=== PATIENT | male | born 1990 | race Caucasian/White ===

== ENCOUNTER 2023-11-02 11:00 | Outpatient (REF) | payer OTHER, SELFPAY ==
[2023-11-02 14:19] LABS: Estimated Average Glucose 263 mg/dL; Hemoglobin A1c % 10.8 % (<6.0)
[2023-11-02 14:51] LABS: Creatinine Urine 109.24 mg/dL; Microalbum/Creatinine Ratio Ur 166.6 ug/mg cr (<30)
[2023-11-02 15:24] LABS: Alanine Aminotransferase 23 U/L (0-40); Albumin Level 3.6 g/dL (3.5-5.0); Alkaline Phosphatase 71 U/L (39-117); Anion Gap 13 (12-20); Aspartate Amino Transferase 23 U/L (5-37); Bilirubin Total 1.1 mg/dL (0.0-1.0); Blood Urea Nitrogen 11 mg/dL (9-16); Carbon Dioxide 31 mmol/L (22-29); Chloride 100 mmol/L (96-108); Cholesterol 133 mg/dL (<200); Estimated Glomerular Filt Rate > 60; Glucose Random 379 mg/dL (60-115); HDL Cholesterol 31 mg/dL (>40); LDL Cholesterol Calculated 67 mg/dL (<100); Sodium 140 mmol/L (135-145); Total Protein 7.1 g/dL (6.5-8.0); Triglycerides 179 mg/dL (<150)
== END 2023-11-02 11:01 | disposition home or self-care (01) ==
LOC: HO.10HDL 11:00
PROVIDERS: Visit Provider Internal Medicine
DX: E11.65 Type 2 diabetes mellitus with hyperglycemia (principal); E66.01 Morbid (severe) obesity due to excess calories; E78.2 Mixed hyperlipidemia; I10 Essential (primary) hypertension
CPT/HCPCS: 36415; 80053; 80061; 82043; 82570; 83036

== ENCOUNTER 2023-11-16 14:05 | Outpatient (AMB) | payer OTHER, SELFPAY ==
--- NOTE | 2023-11-16 14:27 | MHC.OFFVIS ---
Intake Vital Signs 11/16/23 14:30 Height 5 ft Weight 268 lb 15.423 oz BMI 52.5 BP 130/76 Blood Pressure Location Lt brachial Position Sitting Pulse 54 Intake Visit Reasons: NPV/Adlakha/Heart disease/PFO Intake Note: NPV w/ EKG Entry Level Administrative Assistant Required: No Accompanied by: Spouse Allergies No Known Allergies Allergy (Verified 11/16/23 14:31) Medication List - Last Reconciled 11/16/23 by Pelon Choudhury MD atorvastatin 40 mg PO DAILY glipizide ER 10 mg PO BID losartan 50 mg PO DAILY metoprolol tartrate 100 mg PO BID HPI HPI Comments History of Present Illness Details Placido is here for consultation regarding cardiac issues. Based on prior notes from [place], it seems that he has a small VSD and possible bicuspid aortic valve. According to patient, he underwent cardiac surgery at age of 4 days and then [address] [facility]. He says that because of insurance issues, cardiology followups have not been regular. Nothing in the last few years. He generally feels fine for the most part. He does have traditional risk factors for coronary disease including obesity, hypertension, diabetes and dyslipidemia. Otherwise, he gets some random chest tightness episodes but no specific patterns. No clear exertional angina. Some shortness of breath on going up hill but not on level ground. He would like to establish new cardiology care. [facility] Medical History (Updated 11/16/23 @ 14:37 by Pelon Choudhury MD) Bicuspid aortic valve VSD (ventricular septal defect) Surgical History (Updated 11/16/23 @ 14:43 by Pelon Choudhury MD) H/O heart surgery Family History (Updated 11/16/23 @ 14:33 by Fadia Kruger) Father No problems noted. Mother No problems noted. Social History (Updated 11/16/23 @ 14:43 by Pelon Choudhury MD) Alcohol intake: current Alcohol intake frequency: holidays/special occasions only Patient Tobacco Use Status: Former Tobacco user Substance Use Type: Marijuana Review of Systems Const Denies chills, Denies daytime sleepiness, Denies fatigue, Denies fever(s), Denies frequent falls, Denies night sweats, Denies snoring, Denies weakness, Denies weight gain and Denies weight loss Eyes Denies loss of vision ENT Denies dizziness and Denies hearing loss Card Denies chest pain with activity, Denies syncope, Denies rapid heart rate, Denies edema, Denies claudication, Denies leg edema, Denies lightheadedness, Denies palpitations, Denies dyspnea, Denies dyspnea on exertion and Denies orthopnea Resp Denies cough, Denies excessive phlegm production, Denies dyspnea, Denies dyspnea on exertion, Denies snoring and Denies wheezing GI Denies abdominal pain, Denies hematochezia, Denies change in bowel habits, Denies change in stool character, Denies heartburn, Denies nausea and Denies vomiting Denies hematuria, Denies dysuria and Denies urinary frequency Musc Denies arthralgias, Denies muscle weakness, Denies numbness and Denies tingling Skin/Breast Denies nail changes and Denies rash Neuro Denies Abnormal speech present, Denies dizziness, Denies syncope, Denies frequent falls, Denies loss of vision, Denies memory loss, Denies numbness, Denies tingling and Denies weakness Psych Denies depression and Denies memory loss Endo Denies fatigue and Denies palpitations Aller/Immun Denies wheezing Physical Exam Vital Signs: Last Vital Signs Pulse 54 11/16/23 14:30 BP 130/76 11/16/23 14:30 BMI result Body Mass Index 52.5 Const General: comfortable and no acute distress Orientation/consciousness: patient oriented x3 HEENT Other: Unremarkable Head: Yes normal to inspection Neck Neck: Yes normal visual inspection Chest Chest palpation & inspection: normal inspection of the chest Resp Auscultation: clear to auscultation bilaterally Cardio Palpation: normal PMI Heart sounds: S1 normal heart sound present, S2 normal heart sound present, no gallops, no murmurs and no rubs GI Palpation (GI): Soft to palpation Back/Spine/Pelvis Other: unremarkable Skin General skin exam: no rashes or lesions noted Neuro General: patient oriented x3 Speech: No Abnormal speech present Extrem General: Yes normal to inspection Psych Mental Status: mental status grossly normal Office Procedures EKG Details: EKG with sinus bradycardia at 54/Min; no significant ST-T changes and otherwise unremarkable. [place]. [id number]-[id number], Complete Assessment & Plan Assessment & Plan (1) VSD (ventricular septal defect): Code(s): Q21.0 - Ventricular septal defect (2) Bicuspid aortic valve: Code(s): Q23.1 - Congenital insufficiency of aortic valve Plan Echo report from [facility] and [place]-LVEF 65-70%. Perimembranous VSD noted. Possible bicuspid aortic valve with minimal aortic sclerosis. Otherwise, [id number] pulmonary valve regurgitation, mild mitral regurgitation. Right ventricular size/function within normal range. Overall, unclear cardiac surgery at age of 4 days and 4 years and last echocardiographic findings as above. I believe he needs another echocardiogram to reassess. We will also contact [place] for any prior records if still available. Will follow-up in a few weeks' time. Discussed with significant other. Orders: Orders CA echo transthoracic complete Today Q21.0 - Ventricular septal defect, Q23.1 - Congenital insufficiency of aortic valve Coding Level of Care Code New Pt Level 4 (65040) Diagnoses VSD (ventricular septal defect) Q21.0 Bicuspid aortic valve Q23.1 CPT Codes EKG - CPT: 88420-[id number], Complete ([id number])
[2023-11-16 14:30] VITALS: BP 130/76; PULSE 54; BMI 52.5
== END 2023-11-16 14:52 | disposition home or self-care (01) ==
PROVIDERS: PCP Internal Medicine; Visit Provider Internal Medicine
DX: Q21.0 Ventricular septal defect (principal); Q23.1 Congenital insufficiency of aortic valve
CPT/HCPCS: 93010; 99204

== ENCOUNTER → 2023-11-16 14:05 | Outpatient (BNVA) | payer OTHER, SELFPAY | PROVIDERS: PCP Internal Medicine; Visit Provider Internal Medicine | DX: Q21.0 Ventricular septal defect (principal); Q23.1 Congenital insufficiency of aortic valve | CPT/HCPCS: 93005; 99202 ==

== ENCOUNTER → 2023-12-06 15:59 | Outpatient (REF) | payer OTHER, SELFPAY ==
--- NOTE | 2023-12-06 16:01 | CA_ITS ---
Transthoracic Echocardiogram Patient (Last, First, Middle): Placido Nur, Gender: Male Date of : 1990 Age: 33 Procedure Date: 12/06/2023 Procedure Type: Transthoracic Echocardiogram Location: OP Height: 152.4 cm Weight: 124.74 kg BSA: 2.14 m2 Heart Rate: bpm BP: 110 / 78 mmHg Corporate Account Executive: JACINTO Referring MD: Pelon Choudhury MD Symptoms: Q21.0 - Ventricular septal defect Study Quality: Technically Difficult, contrast ECG Rhythm: Sinus Conclusions: - The left ventricular systolic function is low normal. The calculated ejection fraction is 52% by biplane method. - No obvious valvular pathology seen on this study. Findings Procedure Information Contrast agent, definity, is being given per protocol without apparent complications. Left Ventricle Normal left ventricular cavity size. There is mildly increased left ventricular wall thickness. The left ventricular systolic function is low normal. The calculated ejection fraction is 52% by biplane method. There is paradoxical septal motion consistent with post-operative status. Diastolic function is normal for age. Right Ventricle Normal right ventricular cavity size and systolic function. Atria Both atria are normal in size. Aortic Valve The aortic valve structure and function is likely normal. There is a normal trileaflet aortic valve. There is no aortic valve regurgitation. No definitive suggestion of bicuspid aortic valve. Mitral Valve The mitral valve appears normal. There is no mitral valve regurgitation. There is no mitral valve stenosis. Pulmonic Valve The pulmonic valve is likely normal. Tricuspid Valve There is no tricuspid valve regurgitation. Tricuspid regurgitation envelope is inadequate for calculation of right ventricular systolic pressure. Great Vessels The asc aorta is normal in size. Venous The inferior vena cava is normal in size and collapses greater than 50% with inspiration. Pericardium/Pleural There is a trivial pericardial effusion. Prior Study Comparison No prior study available for comparison. Recommendations, Care & Conclusions No obvious valvular pathology seen on this study. Measurements 2D Linear Measurements IVSd: 1.20 0.6-0.9/0.6-1.0 cm LVIDd: 4.52 3.9-5.3/4.2-5.9 cm LVIDd Index: 2.11 2.4-3.2/2.2-3.1 cm/m2 LVIDs: 2.75 2.0-3.6 cm LVPWd: 1.12 0.7-1.1 cm LA Diam: 3.50 2.7-3.8/3.0-4.0 cm LAIDs Index: 1.64 1.5-2.3 cm/m2 LV Mass: 236.77 67-162/88-224 g LV Mass Index: 110.64 43-95/49-115 g/m2 LVOT Diam: 2.20 3.0+(-)1.3 cm 2D Systolic Function EF 4C: 53.00 >55% EF 2C: 50.10 >55% EF BiP: 51.50 >55% Mitral Valve MV Pk E: 1.19 MV PK A: 0.62 MV Decel Time: 143.00 E/A: 1.90 E'Lateral: 14.90 E'Medial: 10.20 E/E' Med: 11.70 E/E' Lat: 8.00 PHT: 42.00 MVA PHT: 5.24 Decel [place]: 8.26 Aortic Valve AoV Pk Mando: 1.23 AoV Mn Mando: 0.84 AoV VTI: 0.28 AoV Pk Grad: 6.00 Aov Mn Grad: 3.00 FADIA Cont.VTI: 2.89 LVOT LVOT Pk Mando: 0.98 LVOT Mn Mando: 0.68 LVOT VTI: 0.21 LVOT Pk Grad: 4.00 LVOT Mn Grad: 2.00 LVOT Diam: 2.20 LVOT Area: 3.80 Diastolic Function MV Pk E: 1.19 MV Pk A: 0.62 E/A: 1.90 E'Medial: 10.20 E/E' Med: 11.70 E' Laterial: 14.90 E/E' Lat: 8.00 Right Ventricle TAPSE (mm): 18.00 TVS' Mando: 11.70 Tricuspid Valve RA Press: 3.00 Great Vessels Aorta Sinus of Valsalva: 3.49 2.0-3.[address] [place]: 2.69 1.7-3.4 cm Ao Asc: 2.80 2.1-3.4 cm Updated in Other Vendor System with Status of Final Pelon Choudhury MD electronically signed on 12/08/2023 6:02:43 AM with status of Final
== END ==
LOC: HO.CARD 15:59
PROVIDERS: PCP Internal Medicine; Visit Provider Internal Medicine
DX: Q23.1 Congenital insufficiency of aortic valve (principal); Q21.0 Ventricular septal defect
CPT/HCPCS: 93306; Q9957

== ENCOUNTER → 2023-12-06 16:01 | Outpatient (BNV) | payer OTHER, SELFPAY | PROVIDERS: PCP Internal Medicine; Visit Provider Internal Medicine | DX: Q21.0 Ventricular septal defect (principal) | CPT/HCPCS: 93306 ==

== ENCOUNTER 2024-01-26 14:33 | Outpatient (AMB) | payer OTHER, SELFPAY ==
[2024-01-26 14:38] VITALS: BP 130/70; PULSE 78; BMI 54.9
--- NOTE | 2024-01-26 14:38 | A.OFFVIS_ITS ---
Intake Vital Signs 01/26/24 14:38 Height 5 ft Weight 281 lb 4.957 oz BMI 54.9 BP 130/70 Blood Pressure Location Rt brachial Position Sitting Pulse 78 Pulse Source Pulse Oximeter Intake Visit Reasons: 2 mth f/up echo/ [facility] records [employer] Supervisor Required: No Accompanied by: Spouse Allergies No Known Allergies Allergy (Verified 11/16/23 14:31) Medication List - Last Reconciled 01/26/24 by Pelon Choudhury MD atorvastatin 40 mg PO DAILY glipizide ER 10 mg PO BID losartan 50 mg PO DAILY metoprolol tartrate 100 mg PO BID HPI HPI Comments History of Present Illness Details Placido returns for follow-up. Recently seen in consultation. He is moved from [place]. Based on those notes, there is a question of small VSD/? Bicuspid aortic valve. He also has various traditional risk factors for coronary disease including morbid obesity, hypertension, diabetes, dyslipidemia. He is trying to establish care locally. Overall, he states he feels good. No specific complaints. Very interested in losing weight. [facility] Medical History (Updated 01/26/24 @ 15:31 by Pelon Choudhury MD) History of patent ductus arteriosus as a child Obesity Surgical History (Updated 01/26/24 @ 15:31 by Pelon Choudhury MD) H/O atrial septal defect repair H/O heart surgery Family History Father No problems noted. Mother No problems noted. Social History Alcohol intake: current Alcohol intake frequency: holidays/special occasions only Patient Tobacco Use Status: Former Tobacco user Substance Use Type: Marijuana Review of Systems Const Denies chills, Denies fatigue, Denies fever(s), Denies frequent falls, Denies weakness, Denies weight gain and Denies weight loss ENT Denies dizziness Card Denies chest pain, Denies leg edema, Denies lightheadedness, Denies palpitations, Denies dyspnea and Denies dyspnea on exertion Resp Denies cough, Denies dyspnea and Denies dyspnea on exertion GI Denies hematochezia Musc Denies abnormal gait, Denies muscle weakness, Denies numbness, Denies radiating pain into limb and Denies tingling Neuro Denies abnormal gait, Denies dizziness, Denies frequent falls, Denies numbness, Denies tingling and Denies weakness Endo Denies fatigue and Denies palpitations Physical Exam Vital Signs: Last Vital Signs Pulse 78 01/26/24 14:38 BP 130/70 01/26/24 14:38 BMI result Body Mass Index 54.9 Const General: comfortable and no acute distress Orientation/consciousness: patient oriented x3 HEENT Other: Unremarkable Head: Yes normal to inspection Neck Neck: Yes normal visual inspection Chest Chest palpation & inspection: normal inspection of the chest Resp Auscultation: clear to auscultation bilaterally Cardio Palpation: normal PMI Heart sounds: S1 normal heart sound present, S2 normal heart sound present, no gallops, no murmurs and no rubs GI Palpation (GI): Soft to palpation Back/Spine/Pelvis Other: unremarkable Skin General skin exam: no rashes or lesions noted Neuro General: patient oriented x3 Extrem General: Yes normal to inspection Psych Mental Status: mental status grossly normal Assessment & Plan Assessment & Plan (1) History of patent ductus arteriosus as a child: Code(s): Z87.74 - Personal history of (corrected) congenital malformations of heart and circulatory system (2) H/O atrial septal defect repair: Code(s): Z87.74 - Personal history of (corrected) congenital malformations of heart and circulatory system (3) Obesity: Code(s): E66.9 - Obesity, unspecified Plan Prior records from [facility] reviewed from 1993. According to that, he has a history of patent ductus arteriosus surgically ligated in the period. He also had surgical repair of ostium secundum atrial septal defect in 1993. Echo report from [facility] [place] and [place]-LVEF 65-70%. Perimembranous VSD noted. Possible bicuspid aortic valve with minimal aortic sclerosis. Otherwise, [id number] pulmonary valve regurgitation, mild mitral regurgitation. Right ventricular size/function within normal range. In the most recent echocardiogram from November of this year, LVEF is 52%. Paradoxical septal motion from the postoperative state. Otherwise no significant valvular findings. No description of any septal defects. Overall, remote history of PDA/ASD repair and no specific management for that. With regard to his traditional risk factors obesity/diabetes/hypertension/dyslipidemia main recommendation would be to lose weight which should help his overall cardiovascular risk profile. He is interested in referral to bariatrics. Orders: Referrals Bariatric Surgery Referral E66.9 - Obesity, unspecified Coding Level of Care Code Est Pt Level 4 (46254) Diagnoses History of patent ductus arteriosus as a child Z87.74 H/O atrial septal defect repair Z87.74 Obesity E66.9
== END 2024-01-26 14:53 | disposition home or self-care (01) ==
PROVIDERS: PCP Internal Medicine; Visit Provider Internal Medicine
DX: Z87.74 Personal history of (corrected) congenital malformations of heart and circulatory system (principal); E66.9 Obesity, unspecified
CPT/HCPCS: 99214

== ENCOUNTER → 2024-01-26 14:33 | Outpatient (BNVA) | payer OTHER, SELFPAY | PROVIDERS: PCP Internal Medicine; Visit Provider Internal Medicine | DX: Q23.1 Congenital insufficiency of aortic valve (principal); E66.9 Obesity, unspecified; Z68.43 Body mass index [BMI] 50.0-59.9, adult; Z87.74 Personal history of (corrected) congenital malformations of heart and circulatory system | CPT/HCPCS: 99212 ==

== ENCOUNTER → 2024-02-03 09:58 | Outpatient (BNVA) | payer OTHER, SELFPAY | PROVIDERS: PCP Internal Medicine; Visit Provider Physician Assistant Surgical ==

== ENCOUNTER 2024-02-24 11:23 | Outpatient (REF) | payer OTHER, SELFPAY ==
[2024-02-24 12:29] LABS: Alanine Aminotransferase 39 U/L (0-40); Albumin Level 3.9 g/dL (3.5-5.0); Alkaline Phosphatase 76 U/L (39-117); Anion Gap 15 (12-20); Aspartate Amino Transferase 28 U/L (5-37); Bilirubin Total 0.7 mg/dL (0.0-1.0); Blood Urea Nitrogen 10 mg/dL (9-16); Calcium 9.5 mg/dL (8.4-10.2); Carbon Dioxide 29 mmol/L (22-29); Chloride 96 mmol/L (96-108); Estimated Glomerular Filt Rate > 60; Potassium 4.9 mmol/L (3.3-5.1); Sodium 135 mmol/L (135-145); Total Protein 7.7 g/dL (6.5-8.0)
[2024-02-24 12:35] LABS: Glucose Random 399 mg/dL (60-115)
[2024-02-24 12:53] LABS: Estimated Average Glucose 249 mg/dL; Hemoglobin A1c % 10.3 % (<6.0)
== END 2024-02-24 11:24 | disposition home or self-care (01) ==
LOC: HO.LAB 11:23
PROVIDERS: PCP Internal Medicine; Visit Provider Internal Medicine
DX: E11.65 Type 2 diabetes mellitus with hyperglycemia (principal); E78.00 Pure hypercholesterolemia, unspecified; I10 Essential (primary) hypertension; R80.8 Other proteinuria; Z68.43 Body mass index [BMI] 50.0-59.9, adult
CPT/HCPCS: 36415; 80053; 83036

== ENCOUNTER 2024-03-16 08:18 | Outpatient (AMB) | payer MEDICAID, SELFPAY ==
[2024-03-19 23:53] VITALS: BMI 59.8
--- NOTE | 2024-03-19 23:53 | A.OFFVIS_ITS ---
VS Expanded 03/19/24 23:53 Height 4 ft 9 in Weight 276 lb 4 oz BMI 59.8 Body Fat % 50.8 Body Fat Mass 140.4 Fat Free Mass 135.8 Visceral Fat Rating 20 Body Water % 35.3 Body Water Mass 97.4 Basal Metabolic Rate/Score 1,983 Intake Visit Reasons: [employer] SWL BMI 59.8 Allergies No Known Allergies Allergy (Verified 03/19/24 23:55) Medication List - Last Reconciled 03/19/24 by Arash Bergman MD atorvastatin 40 mg PO DAILY glipizide ER 10 mg PO BID losartan 50 mg PO DAILY metoprolol tartrate 100 mg PO BID HPI HPI [employer] SWL BMI 59.8: Details: Start time: 12pm, End time: 12.45pm ?I spent 40 minutes speaking with the patient on the phone plus an additional 5 minutes reviewing and updating records for a total of 45 minutes HPI Comments Details: Interested in bariatric surgery Previous weight loss methods: self diets Breakfast: skips Lunch: yes Dinner: yes Snacks: none Exercise: none Fluids: Coffee: no, tea: Cathie daily, soda: yes, juice: none, ETOH: occasionally PFSH Medical History (Updated 03/20/24 @ 00:04 by Arash Bergman MD) Sleep apnea treated with continuous positive airway pressure (CPAP) Non-insulin dependent type 2 diabetes mellitus Hypertension Hyperlipidemia Morbid obesity History of patent ductus arteriosus as a child Obesity Surgical History (Updated 01/26/24 @ 15:31 by Pelon Choudhury MD) H/O atrial septal defect repair H/O heart surgery Family History Father No problems noted. Mother No problems noted. Social History Alcohol intake: current Alcohol intake frequency: holidays/special occasions only Patient Tobacco Use Status: Former Tobacco user Substance Use Type: Marijuana Telehealth Telehealth Telehealth Platform: Telephone Location of provider rendering services: practice address Location of patient: address on file Patient Identification confirmed using: Name, : Yes Telehealth method: voice only Patient verbally consented to treatment: Yes Patient verbally consented to billing insurance company: Yes Patient informed of any privacy concerns related to visit: Yes Minutes spent on Phone/Video with Pt.: 45 Assessment & Plan Assessment & Plan (1) Morbid obesity: Code(s): E66.01 - Morbid (severe) obesity due to excess calories Category: Medical Plan: 1.? Plan for lap sleeve gastrectomy. If diaphragmatic or ventral hernias are present at time of surgery, these will be repaired laparoscopically as well. Risks and complications include possible conversion to an open procedure, anastomotic leak, bleeding requiring transfusion, small bowel obstruction, , DVT and pulmonary embolism, cardiac, or pulmonary complications, as director long term care complications such as anastomotic ulcer, insufficient weight loss and vitamin deficiencies. I emphasized the importance of close follow-up, adherence to instructions and good communication. 2. You will receive a link of our software matthieu to generate an individualized nutritional and exercise plan specific for you. Please send me a screenshot of the plans you will generate Meal to include lean meat (beef, fish, pork, turkey, chicken), or turkmen yogurt, or egg whites, or beans with a salad with olive oil and fruits (berries, pears, apples, kiwi). Avoid salt, breads, potatoes, rice, pasta, desserts. ?3. If you choose shakes, each shake would be drunk slowly, like coffee in a period of 2 hours. ?4. If you choose bars, cut each bar in 4 pieces and eat each piece in 30min ?to make each bar last 2 hours. ?5. I emphasized the importance of measuring accurately the food portion and measure it when serving the food in plate ?6. The meal portions include a specific number of forks of meat and salad. You always eat the meat portion but you can replace up to half of salad/vegetables portion with rice, potatoes or pasta, or a fruit ?if you like. The less you do it the better weight loss will be. ?7. One full-size fork is what it can be scooped on the fork without falling aside and not what can be bit with the fork. Use regular forks like those you find in a typical restaurant. ?8.? Please send me weight measurements as soon as possible and then once a week. Always include your diet and exercise plan. 9. The best choice would be to purchase a stationary bike, elliptical or treadmill at home that can track calories. Let me know if you do so I can give you an exercise plan. ?10. Goal is to lose at least 1.5-2lbs per week ?11. Goal to lose 10% of your weight before surgery, which is about 27lbs. Ultimate weight goal: 249lbs before surgery 12. Please follow the diet plan exactly without any change. If you don't like something about the plan or you feel hungry you need to communicate with me so I can help you revise the plan. You should not change the plan yourself. 13. To be scheduled for EGD due to history of GERD. The possibility of biopsies was discussed. Patient needs to avoid use of NSAIDs and aspirin for 1 week prior to EGD. Risks of perforation and? bleeding was discussed with the patient. This will be an outpatient procedure with IV sedation. Orders: Orders Insulin Today E11.9 - Type 2 diabetes mellitus without complications, E66.01 - Morbid (severe) obesity due to excess calories, E78.5 - Hyperlipidemia, unspecified, G47.30 - Sleep apnea, unspecified, I10 - Essential (primary) hypertension H Pylori Breath Test Today E11.9 - Type 2 diabetes mellitus without complications, E66.01 - Morbid (severe) obesity due to excess calories, E78.5 - Hyperlipidemia, unspecified, G47.30 - Sleep apnea, unspecified, I10 - Essential (primary) hypertension IRON PROFILE Today E11.9 - Type 2 diabetes mellitus without complications, E66.01 - Morbid (severe) obesity due to excess calories, E78.5 - Hyperlipidemia, unspecified, G47.30 - Sleep apnea, unspecified, I10 - Essential (primary) hyp ertension Vitamin B1 Today E11.9 - Type 2 diabetes mellitus without complications, E66.01 - Morbid (severe) obesity due to excess calories, E78.5 - Hyperlipidemia, unspecified, G47.30 - Sleep apnea, unspecified, I10 - Essential (primary) hypertension Vitamin A Today E11.9 - Type 2 diabetes mellitus without complications, E66.01 - Morbid (severe) obesity due to excess calories, E78.5 - Hyperlipidemia, unspecified, G47.30 - Sleep apnea, unspecified, I10 - Essential (primary) hypertension XR chest 2V Today E11.9 - Type 2 diabetes mellitus without complications, E66.01 - Morbid (severe) obesity due to excess calories, E78.5 - Hyperlipidemia, unspecified, G47.30 - Sleep apnea, unspecified, I10 - Essential (primary) hypertension FL upper GI w air Today E11.9 - Type 2 diabetes mellitus without complications, E66.01 - Morbid (severe) obesity due to excess calories, E78.5 - Hyperlipidemia, unspecified, G47.30 - Sleep apnea, unspecified, I10 - Essential (primary) hypertension Hemoglobin A1c Today E11.9 - Type 2 diabetes mellitus without complications, E66.01 - Morbid (severe) obesity due to excess calories, E78.5 - Hyperlipidemia, unspecified, G47.30 - Sleep apnea, unspecified, I10 - Essential (primary) hypertension Complete Blood Count Auto Diff Today E11.9 - Type 2 diabetes mellitus without complications, E66.01 - Morbid (severe) obesity due to excess calories, E78.5 - Hyperlipidemia, unspecified, G47.30 - Sleep apnea, unspecified, I10 - Essential (primary) hypertension Lipid Panel Today E11.9 - Type 2 diabetes mellitus without complications, E66.01 - Morbid (severe) obesity due to excess calories, E78.5 - Hyperlipidemia, unspecified, G47.30 - Sleep apnea, unspecified, I10 - Essential (primary) hypertension Comprehensive Met. Panel Today E11.9 - Type 2 diabetes mellitus without complications, E66.01 - Morbid (severe) obesity due to excess calories, E78.5 - Hyperlipidemia, unspecified, G47.30 - Sleep apnea, unspecified, I10 - Essential (primary) hypertension Vitamin B12 and Folate Today E11.9 - Type 2 diabetes mellitus without complications, E66.01 - Morbid (severe) obesity due to excess calories, E78.5 - Hyperlipidemia, unspecified, G47.30 - Sleep apnea, unspecified, I10 - Essential (primary) hypertension Zinc Today E11.9 - Type 2 diabetes mellitus without complications, E66.01 - Morbid (severe) obesity due to excess calories, E78.5 - Hyperlipidemia, unspecified, G47.30 - Sleep apnea, unspecified, I10 - Essential (primary) hypertension C Reactive Protein Today E11.9 - Type 2 diabetes mellitus without complications, E66.01 - Morbid (severe) obesity due to excess calories, E78.5 - Hyperlipidemia, unspecified, G47.30 - Sleep apnea, unspecified, I10 - Essential (primary) hypertension TSH reflex Free T4 Today E11.9 - Type 2 diabetes mellitus without complications, E66.01 - Morbid (severe) obesity due to excess calories, E78.5 - Hyperlipidemia, unspecified, G47.30 - Sleep apnea, unspecified, I10 - Essential (primary) hypertension Ferritin Today E11.9 - Type 2 diabetes mellitus without complications, E66.01 - Morbid (severe) obesity due to excess calories, E78.5 - Hyperlipidemia, unspecified, G47.30 - Sleep apnea, unspecified, I10 - Essential (primary) hypertension Vitamin D 25-OH Total Today E11.9 - Type 2 diabetes mellitus without complications, E66.01 - Morbid (severe) obesity due to excess calories, E78.5 - Hyperlipidemia, unspecified, G47.30 - Sleep apnea, unspecified, I10 - Essential (primary) hypertension US abdomen comp w elastography Today E11.9 - Type 2 diabetes mellitus without complications, E66.01 - Morbid (severe) obesity due to excess calories, E78.5 - Hyperlipidemia, unspecified, G47.30 - Sleep apnea, unspecified, I10 - Essential (primary) hypertension ECG 12 lead EKG Today E11.9 - Type 2 diabetes mellitus without complications, E66.01 - Morbid (severe) obesity due to excess calories, E78.5 - Hyperlipidemia, unspecified, G47.30 - Sleep apnea, unspecified, I10 - Essential (primary) hypertension RT home sleep study Today E11.9 - Type 2 diabetes mellitus without complications, E66.01 - Morbid (severe) obesity due to excess calories, E78.5 - Hyperlipidemia, unspecified, G47.30 - Sleep apnea, unspecified, I10 - Essential (primary) hypertension Referrals Behavioral Health Referral E11.9 - Type 2 diabetes mellitus without complications, E66.01 - Morbid (severe) obesity due to excess calories, E78.5 - Hyperlipidemia, unspecified, G47.30 - Sleep apnea, unspecified, I10 - Essential (primary) hypertension Nutrition/Dietitian Referral E11.9 - Type 2 diabetes mellitus without complications, E66.01 - Morbid (severe) obesity due to excess calories, E78.5 - Hyperlipidemia, unspecified, G47.30 - Sleep apnea, unspecified, I10 - Essential (primary) hypertension
== END 2024-03-20 00:08 | disposition home or self-care (01) ==
PROVIDERS: PCP Internal Medicine; Visit Provider Surgery
DX: E66.01 Morbid (severe) obesity due to excess calories (principal); Z68.43 Body mass index [BMI] 50.0-59.9, adult
CPT/HCPCS: 99204

== ENCOUNTER → 2024-03-16 08:18 | Outpatient (BNVA) | payer MEDICAID, SELFPAY | PROVIDERS: PCP Internal Medicine; Visit Provider Surgery ==

== ENCOUNTER 2024-07-22 11:31 | Emergency (ER) | payer MEDICAID, SELFPAY ==
--- NOTE | ~2024-07-22 | CT_ITS ---
EXAMINATION: CT ABDOMEN AND PELVIS WITH CONTRAST CLINICAL INFORMATION: Upper abdomen pain, question cholecystitis. Status post appendectomy. COMPARISON: None available. TECHNIQUE: Multidetector volumetric images were obtained from the superior aspect of the liver through the pubic symphysis following administration 85 mL of Omnipaque 350 intravenous contrast. Sagittal and coronal reformatted images were obtained on the technologist's workstation. Oral contrast: No This CT examination was performed using dose optimization techniques as appropriate, variously including the following: *Automated exposure control *Adjustment of mA and/or kV according to patient size (this includes techniques or standardized protocols for targeted exams where dose is matched to indication/reason for exam; i.e. extremities or head) *Use of iterative reconstruction technique DLP: 1085 mGy-cm FINDINGS: LUNG BASES: The visualized lung bases are unremarkable. LIVER, GALLBLADDER, AND BILIARY TREE: Enlarged liver measuring 24 cm in craniocaudal dimension. Diffuse hepatic steatosis with some areas of geographic fatty sparing. No focal liver lesions. The gallbladder is unremarkable with no evidence of radiopaque gallstones, gallbladder wall thickening, or obvious pericholecystic inflammatory changes. PANCREAS: Unremarkable. SPLEEN: Unremarkable. ADRENAL GLANDS: Unremarkable. KIDNEYS AND URETERS: The kidneys are normal in size, shape, and attenuation. No hydronephrosis, hydroureter, or calculi seen. No perinephric stranding. BLADDER: Unremarkable. GASTROINTESTINAL TRACT: Small hiatal hernia. No bowel obstruction. Status post appendectomy. ABDOMINAL WALL: No significant hernia is appreciated. LYMPH NODES: Subcentimeter retroperitoneal lymph nodes. Prominent, nonspecific bilateral inguinal lymph nodes. VASCULAR: Unremarkable. PELVIC VISCERA: Unremarkable. OSSEOUS STRUCTURES: Unremarkable. CT/CT abdomen pelvis w IV con IMPRESSION: 1. No acute abnormality in the abdomen or pelvis. 2. Hepatomegaly with hepatic steatosis. 3. Small hiatal hernia. Fleischner guidelines were followed. Electronically signed by: Anjum Amaya MD 07/22/2024 05:54 PM EDT
--- NOTE | 2024-07-22 11:44 | ED_ITS ---
HPI - Nausea/Vomiting/Diarrhea General Chief complaint: Abdominal Pain Stated complaint: nausea vomiting Time Seen by Provider: 07/22/24 16:07 History of Present Illness ED Provider: Lito GUIDRY Narrative: The patient is a 34-year-old male with a history of type 2 diabetes and morbid obesity. He also has a history of an appendectomy. He says that he has had upper abdominal pain for the last 3 or 4 days. Nausea and some vomiting. Also some loose stools. His primary discomfort is in the upper abdomen. Related Data Home Medications ?Medication ?Instructions ?Recorded ?Confirmed atorvastatin 40 mg tablet 40 mg PO DAILY 11/16/23 03/19/24 glipizide 10 mg tablet, extended 10 mg PO BID 11/16/23 03/19/24 release 24 hr losartan 50 mg tablet 50 mg PO DAILY 11/16/23 03/19/24 metoprolol tartrate 100 mg tablet 100 mg PO BID 11/16/23 03/19/24 Previous Rx's ?Medication ?Instructions ?Recorded omeprazole 40 mg capsule,delayed 40 mg PO DAILY #30 caps 07/22/24 release sucralfate 1 gram tablet 1 g PO TID PRN upper abdominal 07/22/24 pain #90 tabs Allergies Allergy/AdvReac Type Severity Reaction Status Date / Time No Known Allergies Allergy Verified 07/22/24 11:48 Review of Systems 2 Review of Systems: Yes all other systems are reviewed and are negative PMFSH Past Medical History Medical History (Updated 07/23/24 @ 00:00 by Amna Silva) Sleep apnea treated with continuous positive airway pressure (CPAP) Non-insulin dependent type 2 diabetes mellitus Hypertension Hyperlipidemia Morbid obesity History of patent ductus arteriosus as a child Obesity Surgical History (Updated 01/26/24 @ 15:31 by Pelon Choudhury MD) H/O atrial septal defect repair H/O heart surgery Family History Family History Father No problems noted. Mother No problems noted. Social History Social History Alcohol intake: current Alcohol intake frequency: holidays/special occasions only Patient Tobacco Use Status: Former Tobacco user Substance Use Type: Marijuana Advance Directives: No Advance Directives Information Provided: No Physical Exam 2 Vital Signs: Vital Signs: Last Vital Signs Temp 98.1 F 07/22/24 19:47 Pulse 79 07/22/24 19:47 Resp 18 07/22/24 19:47 BP 130/78 07/22/24 19:47 Pulse Ox 94 07/22/24 19:47 O2 Del Method Room Air 07/22/24 18:31 BMI result Body Mass Index 51.4 Const: Other: The patient is a morbidly obese 34-year-old. He has a very large abdominal girth. He is awake and alert, pleasant and cooperative. He does not appear in overt distress. HEENT: Other: Face is symmetrical. Mucous membranes moist. Eyes: Other: Pupils are round equal, conjunctivae are clear, extraocular movements intact. Neck: Other: Moving her neck easily Resp: Effort & Inspection: normal respiratory effort Auscultation: clear to auscultation bilaterally Cardio: Rate: regular rate Rhythm: regular rhythm Heart sounds: S1 normal heart sound present and S2 normal heart sound present GI: Other: The patient is tender across the upper abdomen. He seems most tender in the lower abdomen is nontender. Skin: Other: Skin is pale and dry Neuro: Other: The patient is awake and alert with a normal mental status. Cranial nerves are grossly intact. He moves his extremities normally and seems grossly neurologically intact. Extrem: Other: No peripheral edema Course Course Course Narrative: This is a Rapid Medical Examination (RME) performed by Jovany Sterling PA-C in triage. Full HPI, ROS, assessment and treatment plan per primary provider in the Main ED. 34 yo male hx of HTN, HDL, morbid obesity, sleep apnea on cpap, T2Dm here for eval of n/v and upper abdominal pain x3 days, with episode of diarrhea today. taking tylenol w/ temporary releif. remote hx of appendectomy, no other abd surgeries. Plan: labs, zofran ordered Medications Administered Discontinued Medications Generic Name Dose Route Start Last Admin Trade Name Freq PRN Reason Stop Dose Admin Droperidol 0.625 mg 07/22/24 16:17 07/22/24 17:21 Droperidol 5 Mg/2 Ml Vial IVPUSH 07/22/24 16:18 0.625 mg ONCE ONE Administration Famotidine 20 mg 07/22/24 16:17 07/22/24 18:12 Famotidine/Pf 20 Mg/2 Ml Vial IVPUSH 07/22/24 16:18 20 mg ONCE ONE Administration Sodium Chloride 1,000 mls @ 999 mls/hr 07/22/24 16:15 07/22/24 17:28 Ns IV 07/22/24 17:15 Infused .Q1H1M KELLY Infusion Iohexol 100 ml 07/22/24 17:19 07/22/24 17:20 Iohexol 350 Mg/Ml 100 Ml Infus..Btl IV 07/22/24 17:20 85 ml ONCE ONE Administration Ondansetron HCl 4 mg 07/22/24 11:47 07/22/24 17:28 Ondansetron Odt 4 Mg Tab.Rapdis TRANSLINGU 07/22/24 11:48 Not Given ONCE ONE Sucralfate 1 gm 07/22/24 18:01 07/22/24 18:13 Sucralfate Oral Suspension 1 Gm/10 Ml Oral.Susp PO 07/22/24 18:02 1 gm ONCE ONE Administration Medical Decision Making Medical Decision Making MDM Narrative: The patient is a 34-year-old male with upper abdominal pain and upper abdominal tenderness. Labs were unremarkable. A CT scan was done to evaluate for possible biliary disease. The CT was negative. The patient has had an appendectomy. He was given a dose of oral sucralfate with significant improvement in his symptoms. I suspect he has gastritis. He will be discharged with prescriptions for omeprazole and sucralfate. Lab Data 07/22/24 12:18 07/22/24 12:18 Labs: Lab Results 07/22/24 07/22/24 Range/Units 12:18 17:25 WBC 9.0 (4.8-10.8) X10*3/uL RBC 5.31 (4.60-5.80) X10*6/uL Hgb 16.1 (14.0-18.0) g/dl Hct 48.9 (42.0-52.0) % MCV 92.1 (80.0-98.0) fL MCH 30.3 (27.0-33.0) pg MCHC 32.9 (31.0-36.0) g/dl RDW 13.6 (11.0-16.0) % Plt Count 204 (160-400) X10*3/uL MPV 11.4 (9.4-12.4) fL Immature Gran % (Auto) 0.6 H (0.0-0.4) % Neut % (Auto) 51.9 (45-73) % Lymph % (Auto) 36.9 (20-40) % [place] % (Auto) 7.6 (2-11) % Eos % (Auto) 2.6 (0-4) % Baso % (Auto) 0.4 (0-2) % Lymph # (Auto) 3.3 (1.2-4.9) X10*3/uL [place] # (Auto) 0.7 (0.1-1.2) X10*3/uL Eos # (Auto) 0.2 (0.0-0.4) X10*3/uL Baso # (Auto) 0.0 (0.0-0.2) X10*3/uL Abs Immat Gran (auto) 0.05 H (0.00-0.03) X10*3/uL Absolute Neuts (auto) 4.7 (2.0-8.3) x10*3/uL Absolute Nucleated RBC 0.000 (0.0-0.012) X10*3/uL Nucleated RBC % (auto) 0.0 (0.0-0.2) /100WBC Sodium 134 L (135-145) mmol/L Potassium 4.9 (3.3-5.1) mmol/L Chloride 96 (96-108) mmol/L Carbon Dioxide 28 (22-29) mmol/L Anion Gap 15 (12-20) BUN 18 H (9-16) mg/dL Creatinine 1.10 (0.5-1.4) mg/dL Estim Creat Clear Calc 105.0 Estimated GFR > 60 Random Glucose 412 H* (60-115) mg/dL Calcium 9.3 (8.4-10.2) mg/dL Magnesium 1.9 (1.6-2.6) mg/dL Total Bilirubin 0.8 (0.0-1.0) mg/dL AST 51 H (5-37) U/L ALT 64 H (0-40) U/L Alkaline Phosphatase 121 H (39-117) U/L C-Reactive Protein 2.41 H (< or = 0.50) mg/dL Total Protein 7.0 (6.5-8.0) g/dL Albumin 3.6 (3.5-5.0) g/dL Lipase 40 (8-78) U/L Urine Color Yellow Urine Appearance Clear Urine pH 5.5 (5.0-9.0) Ur Specific [place] >= 1.030 H (1.005-1.025) Urine Protein 30 (1+) H (Neg-Trace) mg/dL Urine Glucose (UA) >=1000 H (Negative) mg/dL Urine Ketones 15 (Negative) mg/dL Urine Blood Negative (Negative) Urine Nitrite Negative (Negative) Ur Leukocyte Esterase Negative (Negative) Urine RBC 0-2 (0-2) /HPF Urine WBC 6-10 H (0-5) /HPF Ur Squamous Epith Cells 0-2 (0-2) /HPF Urine Bacteria None Seen (None Seen) Hyaline Casts 0-2 (0-2) /LPF Discharge Plan Discharge Clinical Impression: Acute upper abdominal pain Patient Disposition: Home, Self-Care Instructions: Gastritis (ED) Additional Instructions: I think the pain you have been experiencing is coming from a problem we called gastritis. Gastritis is an irritation of the lining of the stomach that is thought to be a result of stomach acid problems. I have sent a prescription for omeprazole to your pharmacy. This medication is intended to reduce stomach acid production. Please take this medication on a regular basis once a day. I have also sent a medication called sucralfate. Sucralfate is a medication that is a soothes irritated tissue in the stomach. You may take this on an as- needed basis up to 3 times a day. Some people crush the tablet and mix it in water to make a slurry. Please contact your regular doctor's office on Wednesday to make a follow up appointment to discuss this syndrome further. Return to the emergency room if you feel significantly worse. Prescriptions: New omeprazole 40 mg capsule,delayed release(DR/EC) 40 mg PO DAILY Qty: 30 0RF sucralfate 1 gram tablet 1 g PO TID PRN (Reason: upper abdominal pain) Qty: 90 0RF No Action glipizide 10 mg tablet extended release 24hr 10 mg PO BID losartan 50 mg tablet 50 mg PO DAILY metoprolol tartrate 100 mg tablet 100 mg PO BID atorvastatin 40 mg tablet 40 mg PO DAILY Referrals: Tamica Aldridge MD [Primary Care Provider] - (Gastritis) Interventions: ED Discharge Assessment Last Done: 07/22/24 19:47 Discharge Date/Time: 07/22/24 19:49 Print Language: Angolan
[2024-07-22 11:45] VITALS: BP 140/94; PULSE 94; RESP 18; TEMP 36.6; O2SAT 95; BMI 51.4
[2024-07-22 12:24] LABS: MANUAL DIFF FLAG NO
[2024-07-22 12:26] LABS: Basophils Percent Auto 0.4 % (0-2); Eosinophils Absolute Auto 0.2 X10*3/uL (0.0-0.4); Eosinophils Percent Auto 2.6 % (0-4); Hematocrit 48.9 % (42.0-52.0); Hemoglobin 16.1 g/dl (14.0-18.0); Imm Gran Abs Auto 0.05 X10*3/uL (0.00-0.03); Imm Gran Pct Auto 0.6 % (0.0-0.4); Lymphocytes Absolute Auto 3.3 X10*3/uL (1.2-4.9); Lymphocytes Percent Auto 36.9 % (20-40); Mean Corpuscular HGB Conc 32.9 g/dl (31.0-36.0); Mean Corpuscular Hemoglobin 30.3 pg (27.0-33.0); Mean Corpuscular Volume 92.1 fL (80.0-98.0); Mean Platelet Volume 11.4 fL (9.4-12.4); Monocytes Absolute Auto 0.7 X10*3/uL (0.1-1.2); Monocytes Percent Auto 7.6 % (2-11); Neutrophils Absolute Auto 4.7 x10*3/uL (2.0-8.3); Neutrophils Percent Auto 51.9 % (45-73); Platelet Count 204 X10*3/uL (160-400); Red Blood Count 5.31 X10*6/uL (4.60-5.80); Red Cell Distribution Width 13.6 % (11.0-16.0)
[2024-07-22 12:46] LABS: Alanine Aminotransferase 64 U/L (0-40); Albumin Level 3.6 g/dL (3.5-5.0); Alkaline Phosphatase 121 U/L (39-117); Anion Gap 15 (12-20); Aspartate Amino Transferase 51 U/L (5-37); Bilirubin Total 0.8 mg/dL (0.0-1.0); Blood Urea Nitrogen 18 mg/dL (9-16); Calcium 9.3 mg/dL (8.4-10.2); Carbon Dioxide 28 mmol/L (22-29); Chloride 96 mmol/L (96-108); Estimated Glomerular Filt Rate > 60; Glucose Random 412 mg/dL (60-115); Lipase 40 U/L (8-78); Magnesium 1.9 mg/dL (1.6-2.6); Potassium 4.9 mmol/L (3.3-5.1); Sodium 134 mmol/L (135-145)
[2024-07-22 16:15] VITALS: BP 112/63; PULSE 81; RESP 14; TEMP 36.4; O2SAT 94
[2024-07-22] MEDS: 0.9 % Sodium Chloride 1,000 ML 999 ML IV (16:35)
[2024-07-22 16:42] LABS: C Reactive Protein 2.41 mg/dL (< or = 0.50)
[2024-07-22] MEDS: iohexoL 350 MG/ML 100 ML INFUS..BTL IV (17:20)
[2024-07-22] MEDS: droPERidol 5 MG/2 ML VIAL 0.625 MG IVPUSH (17:21)
[2024-07-22 17:34] LABS: Appearance Urine Clear; Color Urine Yellow; Glucose Urine UA >=1000 mg/dL (Negative); Leukocyte Esterase Urine Negative (Negative); Nitrite Urine Negative (Negative); PH 5.5 (5.0-9.0); Specific Gravity - Urine >= 1.030 (1.005-1.025); UMIC TRIGGER UACC YES; Urine Blood Negative (Negative); Urine Ketones 15 mg/dL (Negative); Urine Protein 30 (1+) mg/dL (Neg-Trace)
[2024-07-22 17:36] LABS: Bacteria Urine None Seen (None Seen); Hyaline Casts Urine 0-2 /LPF (0-2); RBC Urine 0-2 /HPF (0-2); Squamous Epithelial Cell Urine 0-2 /HPF (0-2); UACC Culture Trigger YES
[2024-07-22 18:00] VITALS: BP 129/74; PULSE 113; RESP 16; TEMP 36.8; O2SAT 99
[2024-07-22] MEDS: Famotidine/PF 20 MG/2 ML VIAL IVPUSH (18:12)
[2024-07-22] MEDS: Sucralfate Oral Suspension 1 GM/10 ML ORAL.SUSP PO (18:13)
[2024-07-22 18:31] VITALS: BP 130/78; PULSE 79; RESP 18; O2SAT 94
--- NOTE | 2024-07-22 19:46 | PC.NURSE ---
This RN d/c pt for primary nurse
[2024-07-22 19:47] VITALS: BP 130/78; PULSE 79; RESP 18; TEMP 36.7; O2SAT 94
== END 2024-07-22 19:49 | disposition home or self-care (01) ==
PROVIDERS: Physician Assistant Medical; Emergency Provider Emergency Medicine; PCP Internal Medicine
DX: R10.10 Upper abdominal pain, unspecified (principal)
CPT/HCPCS: 36415; 74177; 80053; 81001; 83690; 83735; 85025; 86140; 87086; 96361; 96374; 96375; 99284; J1790; Q9967